=== PATIENT | male | born 1930 | race Caucasian/White ===

== ENCOUNTER 2016-06-05 08:07 | Day surgery (SDC) | payer MEDICARE ==
[~2016-06-05] VITALS: Ht 180.3 cm; Wt 91.9 kg
[~2016-06-05 08:07] MED LIST: ALLOPURINOL100 MG PO; ASPIRIN325 MG PO; COLCRYS0.6 MG; FINASTERIDE5 MG PO; FLONASE AL50 MCG/ACT IN; LISINOPRIL10 MG PO; NORVASC10 MG PO; PLAVIX75 MG PO; PROTONIX40 MG PO; TOPROL XL25 MG PO
--- NOTE | 2016-06-05 09:46 | Provider's Discharge Care Plan ---
Problem, Goal, Plan Problem List 1. S/P colonoscopy Goals: Screening Instructions: Follow up as directed, Take meds as directed, HIGH FIBER DIET DIVERTICULOSIS INFORMATION HANDOUT
--- NOTE | 2016-06-05 09:46 | Provider's Discharge Care Plan ---
Problem, Goal, Plan Problem List 1. S/P colonoscopy Goals: Screening Instructions: Follow up as directed, Take meds as directed, HIGH FIBER DIET DIVERTICULOSIS INFORMATION HANDOUT
--- NOTE | 2016-06-05 10:16 | OPERATIVE REPORT ---
DATE OF SURGERY: 06/05/2016 SURGEON: Sadia Gay III, MD [employer] SALES: None. PREOPERATIVE DIAGNOSIS: 1. Screening colonoscopy POSTOPERATIVE DIAGNOSIS: 1. Extensive diverticulosis PROCEDURE PERFORMED: 1. Colonoscopy ANESTHESIA: TIVA. INDICATIONS: The patient is an 85-year-old male who, on examination, was noted to have a left inguinal hernia. The patient apparently had never had a colonoscopy, is asymptomatic, and is scheduled for his first colonoscopy. SURGICAL FINDINGS: Normal-appearing cecum. The ascending had diverticula as did the transverse and descending. The sigmoid had extensive diverticulosis, and the rectal vault appeared grossly normal. SURGICAL TECHNIQUE: The patient was brought to the operating room and placed in the left lateral decubitus position, where he was administered TIVA and monitored closely by anesthesia. After proper anesthesia had taken effect, a digital rectal examination revealed no masses or stenosis. This was followed by the passage of a fiberoptic video flexible Olympus colonoscope which, without difficulty, negotiated to the cecum. The cecum was identified by anatomical landmarks and anterior abdominal wall ballottement. On withdrawing the scope, the aforementioned findings were noted. The scope was then retroflexed, good view of the rectal vault obtained. No other pathology identified. The scope was completely withdrawn. The patient tolerated the procedure well and was transferred to the recovery room in stable condition. There were no intraoperative or anesthetic complications.
[2016-06-05 11:05] VITALS: BP 154/72
== END 2016-06-05 11:50 | disposition home or self-care (01) ==
LOC: OR SRH 08:07 → SCU SRH 08:13 → OR SRH 10:30
PROVIDERS: Specialist
PROC: 0DJD8ZZ Inspection of Lower Intestinal Tract, Via Natural or Artificial Opening Endoscopic (ICD-10-PCS; principal; 2016-06-05 10:30)
DX: Z12.11 Encounter for screening for malignant neoplasm of colon (principal); K57.30 Diverticulosis of large intestine without perforation or abscess without bleeding; Z79.01 Long term (current) use of anticoagulants; I48.0 Paroxysmal atrial fibrillation; I10 Essential (primary) hypertension
CPT/HCPCS: 29229; 29240; 50004; 60001; 83526